=== PATIENT | female | born 1980 | race Caucasian/White ===

== ENCOUNTER 2017-03-23 12:36 | Observation (INO) | payer OTHER ==
[~2017-03-23] VITALS: Ht 157.5 cm; Wt 75.3 kg
[2017-04-21] MEDS ORDERED: PREN1TAB80 PO (07:46)
[2017-04-21 07:57] VITALS: BP 103/67
== END 2017-04-21 09:25 | disposition home or self-care (01) ==
LOC: 4S 04-21 07:30
PROVIDERS: ADMIT Obstetrics & Gynecology; ATTEND Obstetrics & Gynecology
DX: O09.523 Supervision of elderly multigravida, third trimester (principal); Z3A.39 39 weeks gestation of pregnancy
CPT/HCPCS: 59025; G0378

== ENCOUNTER 2017-04-23 07:58 | Inpatient (IN) | payer OTHER ==
[~2017-04-23 07:58] MED LIST: OXYTOCIN 30 UNITS/LACT RINGERS 500 ML IV ONE; PREN1TAB80 PO; RINGERS SOLUTION,LACTATED 1,000 ML IV PRN
[2017-04-23] MEDS ORDERED: LIDOCAINE HCL/PF 1% 30 ML VIAL INJ PRN (08:00)
[2017-04-23] MEDS ORDERED: FentaNYL CITRATE-PF 100 MCG/2 ML VIAL IVP PRN (08:00)
[2017-04-23] MEDS ORDERED: METOCLOPRAMIDE HCL 5 MG/ML 2 ML VIAL IVP PRN (08:00)
[2017-04-23] MEDS ORDERED: OXYGEN THERAPY IH SCH (08:00)
[2017-04-23] MEDS ORDERED: CITRIC ACID/SODIUM CITRATE 30 ML SOLUTION UDCUP PO PRN (08:00)
[2017-04-23 08:47] LABS: BASOPHILS % (AUTO) 0.5 % (0.0-2.0); EOSINOPHILS % (AUTO) 2.6 % (1.0-6.0); HEMATOCRIT 36.4 % (36-46); HEMOGLOBIN 12.7 g/dL (12.0-16.0); LYMPHOCYTES # (AUTO) 1.1 K/uL (1.0-4.8); LYMPHOCYTES % (AUTO) 13.9 % (22.0-44.0); MEAN CORPUSCULAR HEMOGLOBIN 30.6 pg (26.0-34.0); MEAN CORPUSCULAR HGB CONC 34.8 G/dL (31.0-37.0); MEAN CORPUSCULAR VOLUME 88 fL (80-100); MONOCYTES # (AUTO) 0.5 K/uL (0.1-1.0); MONOCYTES % (AUTO) 6.3 % (2.0-9.0); NEUTROPHILS # (AUTO) 6.1 K/uL (1.8-7.7); NEUTROPHILS % (AUTO) 76.7 % (40.0-70.0); PLATELET COUNT (AUTO)-OB 153 K/uL (150-450); RED BLOOD CELL COUNT(AUTO) 4.13 MIL/uL (4.00-5.20); RED CELL DISTRIBUTION WIDTH 14.2 % (11.5-14.5)
[2017-04-23] MEDS ORDERED: OXYTOCIN 30 UNITS/LACT RINGERS 500 ML IV PRN (09:03)
[2017-04-23] MEDS: RINGERS SOLUTION,LACTATED 1,000 ML IV SCH ×2 (09:18→14:18)
[2017-04-23 09:43] VITALS: BP 107/65
[2017-04-23] MEDS ORDERED: INFLUENZA VIRUS VACCINE QVS 2017-18 (3YR+)/PF 60 MCG/0.5 ML SYRINGE IM ONE (11:15)
[2017-04-23] MEDS ORDERED: LIDOCAINE HCL/PF 2% 5 ML VIAL ONE (11:53)
[2017-04-23] MEDS ORDERED: ROPIVACAINE HCL 0.2% 100 ML ED ONE (11:53)
[2017-04-23] MEDS ORDERED: BUPIVACAINE HCL/PF 0.25% 10 ML VIAL ONE (11:53)
[2017-04-23] MEDS ORDERED: ROPIVACAINE HCL 0.2% 100 ML ED PRN (12:36)
[2017-04-23] MEDS ORDERED: PROMETHAZINE HCL 12.5 MG in SODIUM CHLORIDE 0.9% 50 ML IV PRN (12:45)
[2017-04-23] MEDS ORDERED: NALBUPHINE HCL 10 MG/ML VIAL IVP PRN ×2 (12:45)
[2017-04-23] MEDS ORDERED: ONDANSETRON HCL 4 MG/2 ML VIAL IVP PRN (12:45)
[2017-04-23] MEDS ORDERED: DiphenhydrAMINE HCL 50 MG/ML VIAL IVP PRN (12:45)
[2017-04-23] MEDS ORDERED: CeFAZolin 2 GM/DEXTROSE 50 ML IV ONE (15:00)
[2017-04-23] MEDS ORDERED: BENZOCAINE 20%/MENTHOL 56 GM SPRAY CANISTER TP PRN (15:30)
[2017-04-23] MEDS ORDERED: LANOLIN 7 GM OINTMENT TP PRN (15:30)
[2017-04-23] MEDS ORDERED: ACETAMINOPHEN/CODEINE 300-30 MG TABLET PO PRN ×2 (15:30)
[2017-04-23] MEDS ORDERED: GLYCERIN/WITCH HAZEL LEAF 40 PADS JAR TP PRN (15:30)
[2017-04-23] MEDS: IBUPROFEN 800 MG TABLET PO SCH ×2 (16:52→21:30)
[2017-04-23] MEDS: MAGNESIUM HYDROXIDE SUSPENSION 30 ML UDCUP PO SCH (21:30)
[2017-04-24] MEDS: IBUPROFEN 800 MG TABLET PO SCH ×2 (05:55→11:23)
[2017-04-24] MEDS: MAGNESIUM HYDROXIDE SUSPENSION 30 ML UDCUP PO SCH (09:38)
[2017-04-24] MEDS ORDERED: IBUP-2070 PO (11:01)
[2017-04-24] MEDS ORDERED: DSS100 PO (11:02)
== END 2017-04-24 16:35 | disposition home or self-care (01) | DRG 775 ==
LOC: 4S 07:58 → OBSVTOIN 07:58 → 4S 08:18
PROVIDERS: ADMIT Obstetrics & Gynecology; ATTEND Obstetrics & Gynecology
PROC: 10E0XZZ Delivery of Products of Conception, External Approach (ICD-10-PCS; principal; 2017-04-23)
PROC: 0W8NXZZ Division of Female Perineum, External Approach (ICD-10-PCS; 2017-04-23)
PROC: 3E0R3BZ Introduction of Anesthetic Agent into Spinal Canal, Percutaneous Approach (ICD-10-PCS; 2017-04-23)
PROC: 00HU33Z Insertion of Infusion Device into Spinal Canal, Percutaneous Approach (ICD-10-PCS; 2017-04-23)
PROC: 3E0234Z Introduction of Serum, Toxoid and Vaccine into Muscle, Percutaneous Approach (ICD-10-PCS; 2017-04-23)
DX: O80 Encounter for full-term uncomplicated delivery (principal); Z23 Encounter for immunization; Z37.0 Single live birth; Z3A.40 40 weeks gestation of pregnancy
CPT/HCPCS: 90471; J0690; J2590; J2795; J3490; J7120